=== PATIENT | male | born 1955 | race Two or more races ===

== ENCOUNTER 2024-09-16 17:42 | Emergency (ER) | payer MEDICARE ==
[~2024-09-16] VITALS: Ht 162.6 cm; Wt 63.6 kg
[2024-09-16 17:56] VITALS: TEMP 97.7
[2024-09-16 18:29] LABS: BASOPHILS # (AUTO) 0.1 X10'3 (0-0.2); EOSINOPHILS # (AUTO) 0.2 X10'3 (0-0.9); LYMPHOCYTES # (AUTO) 2.2 X10'3 (1.1-4.8); MONOCYTES # (AUTO) 0.4 X10'3 (0-0.9); WHITE BLOOD COUNT 6.8 X10'3 (4.5-11.0)
[2024-09-16 18:30] LABS: EOSINOPHILS % (AUTO) 2.7 % (0-6); HEMATOCRIT 36.1 % (42.0-52.0); LYMPHOCYTES % (AUTO) 33.2 % (21-51); MEAN CORPUSCULAR HEMOGLOBIN 27.3 PG (27.0-31.0); MEAN CORPUSCULAR HGB CONC 33.1 g/dL (33.0-36.5); MEAN CORPUSCULAR VOLUME 82.5 FL (78-98); MEAN PLATELET VOLUME 10.6 FL (7.4-10.4); NEUTROPHILS # (AUTO) 3.9 X10'3 (1.8-7.7); NEUTROPHILS % (AUTO) 57.1 % (42-75); PLATELET COUNT 219 X10'3 (140-440); RED BLOOD COUNT 4.38 X10'6 (4.70-6.10); RED CELL DISTRIBUTION WIDTH 16.8 % (11.5-14.5)
[2024-09-16 18:36] LABS: ALANINE AMINOTRANSFERASE 15 U/L (12-78); ALBUMIN 3.6 G/DL (3.4-5.0); ALBUMIN/GLOBULIN RATIO 0.9 (1.1-1.5); ALKALINE PHOSPHATASE 119 IU/L (46-116); ANION GAP 11 (8-16); ASPARTATE AMINO TRANSFERASE 17 U/L (10-37); BILIRUBIN,TOTAL 0.5 MG/DL (0.1-1.0); BLOOD UREA NITROGEN 12 MG/DL (7-18); CALCIUM 8.6 MG/DL (8.5-10.1); CHLORIDE 105 MMOL/L (99-107); CREATININE 1.33 MG/DL (0.60-1.10); GLUCOSE 151 MG/DL (70-104); LIPASE 70 U/L (16-77); POTASSIUM 3.8 MMOL/L (3.5-5.1); SODIUM 139 MMOL/L (135-145); TOTAL CARBON DIOXIDE 22.9 MMOL/L (24-32); TOTAL PROTEIN 7.7 G/DL (6.4-8.2); eCRCL 43 ML/MIN; eGFR 53 ML/MIN
[2024-09-16 18:55] LABS: PLATELET ESTIMATE NORMAL
[2024-09-16 18:57] LABS: ANISOCYTOSIS 1+
[2024-09-16 18:58] LABS: GIANT PLATELET FEW; LARGE PLATELETS FEW
[2024-09-16] MEDS: ondansetron/PF 4mg/2ml inj IV ONE (20:00)
[2024-09-16] MEDS: ketorolac trometh 15mg/ml vial 15 MG/ML ML IV ONE (20:01)
[2024-09-16] MEDS: morphine 4 MG/ML inj SYRINge IV ONE (20:02)
[2024-09-16 21:12] LABS: BILIRUBIN,URINE NEGATIVE (Neg); CLARITY,URINE CLEAR (Clear); COLOR,URINE YELLOW (Yellow); GLUCOSE, URINE NEGATIVE (Neg); KETONES,URINE NEGATIVE (Neg); LEUKOCYTE ESTERASE ,URINE NEGATIVE (Neg); NITRITES, URINE NEGATIVE (Neg); OCCULT BLOOD,URINE SMALL (Neg); PROTEIN,URINE NEGATIVE (Neg); UROBILINOGEN,URINE 0.2 E.U/dL (0.2-1.0)
[2024-09-16] MEDS: normal saline 1000ml 1,000 ML IV ONE (21:12)
[2024-09-16 21:18] LABS: UA COLLECTION TYPE NON-SPECIFIED
[2024-09-16 21:20] LABS: BACTERIA,URINE NONE SEEN /HPF (Neg); SQUAMOUS EPITHELIAL CELL,UR NONE SEEN /LPF (FEW); WBC,URINE NONE SEEN /HPF (0-4)
[2024-09-16] MEDS ORDERED: IBUP-1984 PO (21:29)
[2024-09-16] MEDS ORDERED: FLO0.4C PO (21:29)
[2024-09-16 21:30] VITALS: BP 141/68; PULSE 56; RESP 16; O2SAT 94
[2024-09-16] MEDS: tamsulosin 0.4mg capsule PO SCH (21:48)
== END 2024-09-16 21:55 | disposition home or self-care (01) ==
LOC: ER 17:43
DX: N20.0 Calculus of kidney (principal); Z87.442 Personal history of urinary calculi
CPT/HCPCS: 36415; 74176; 80053; 81001; 83690; 85008; 85025; 96361; 96374; 96375; 99285; J1885; J2270; J2405; J7030